=== PATIENT | female | born 1985 | race Caucasian/White ===

== ENCOUNTER 2017-03-10 09:44 | Emergency (ER) | payer SELFPAY ==
[~2017-03-10 09:44] MED LIST: CEPH-264 PO; HYDR-971 PO; METR500T PO
[2017-03-10 12:22] VITALS: BP 108/70
--- NOTE | 2017-03-10 12:36 | PHYS DOC ---
Past Medical History Past Medical History: Asthma, Depression, Other Additional Past Medical Histor: PAST SUICIDE ATTEMPTS Past Surgical History: No Surgical History, Other Additional Past Surgical Histo: [place] teeth Alcohol Use: Occasionally Drug Use: None Adult General Chief Complaint Chief Complaint: SORE THROAT HPI HPI Patient is a 31 year old female with history of asthma who presents today with right ear pain and sore throat that began yesterday. Patient denies any fever Review of Systems Review of Systems Constitutional: See history of present illness Eyes: Denies change in visual acuity, redness, or eye pain [] HENT: Right ear pain and sore throat [] Respiratory: Denies cough or shortness of breath [] Cardiovascular: No additional information not addressed in HPI [] GI: Denies abdominal pain, nausea, vomiting, bloody stools or diarrhea [] : Denies dysuria or hematuria [] Musculoskeletal: Denies back pain or joint pain [] Integument: Denies rash or skin lesions [] Neurologic: Denies headache, focal weakness or sensory changes [] Endocrine: Denies polyuria or polydipsia [] Allergies Allergies Allergies Coded Allergies Type Severity Reaction Last Updated Verified No Known Drug Allergies 05/25/15 No Physical Exam Physical Exam Constitutional: Well developed, well nourished, no acute distress, non-toxic appearance. [] HENT: Normocephalic, atraumatic, bilateral external ears normal, oropharynx moist, no oral exudates, nose normal. [] Right TM is mildly injected, posterior pharynx with mild erythema. Eyes: PERRLA, EOMI, conjunctiva normal, no discharge. [] Neck: Normal range of motion, no tenderness, supple, no stridor. [] Cardiovascular:Heart rate regular rhythm, no murmur [] Lungs & Thorax: Bilateral breath sounds clear to auscultation [] Abdomen: Bowel sounds normal, soft, no tenderness, no masses, no pulsatile masses. [] Skin: Warm, dry, no erythema, no rash. [] Back: No tenderness, no CVA tenderness. [] Extremities: No tenderness, no cyanosis, no clubbing, ROM intact, no edema. [] Neurologic: Alert and oriented X 3, normal motor function, normal sensory function, no focal deficits noted. [] Psychologic: Affect normal, judgement normal, mood normal. [] Current Patient Data Vital Signs Vital Signs Date Time Temp Pulse Resp B/P Pulse Ox O2 Delivery O2 Flow Rate FiO2 03/10/17 12:22 98.1 68 18 99 Room Air 98.1 EKG EKG [] Radiology/Procedures Radiology/Procedures [] Course & Med Decision Making Course & Med Decision Making Pertinent Labs and Imaging studies reviewed. (See chart for details) Patient has right otitis media and pharyngitis. Discharged with amoxicillin. Saltwater gargles recommended. Tylenol Motrin for pain or fever. Follow-up with primary care doctor in 1-2 weeks. Dragon Disclaimer Dragon Disclaimer This electronic medical record was generated, in whole or in part, using a voice recognition dictation system. Departure Departure Impression: Primary Impression: Viral pharyngitis Additional Impression: Otitis media Disposition: 01 HOME, SELF-CARE Condition: STABLE Referrals: NO PCP (PCP) Follow-up with your doctor in one week Patient Instructions: Otitis Media, Adult, Viral and Bacterial Pharyngitis Additional Instructions: You have an ear infection as well as sore throat. Please complete your antibiotics. Take Tylenol/ Motrin for pain or fever. Use saltwater gargles as needed for sore throat. Come back to the ED at any point symptoms worsen. Scripts Amoxicillin 875 Mg Tablet1 Tab PO BID #20 TAB Prov:FLOYD TRISTAN APRN 03/10/17 Problem Qualifiers Additional Impression: Otitis media Otitis media type: other nonsuppurative Laterality: right Chronicity: acute Recurrence: not specified as recurrent Qualified Code: H65.191 - Other acute nonsuppurative otitis media, right ear FLOYD TRISTAN APRN Mar 10, 2017 12:36
[2017-03-10] MEDS ORDERED: AMOX875T PO (12:43)
== END 2017-03-10 13:23 | disposition home or self-care (01) ==
LOC: ER 09:44
DX: H65.191 Other acute nonsuppurative otitis media, right ear (principal); J02.8 Acute pharyngitis due to other specified organisms; B34.9 Viral infection, unspecified; F32.9 Major depressive disorder, single episode, unspecified; J45.909 Unspecified asthma, uncomplicated
CPT/HCPCS: 99283

== ENCOUNTER 2018-02-21 11:32 | Emergency (ER) | payer OTHER ==
[2018-02-21] MEDS: LIDOCAINE WITH 8.4% SOD BICARB 3 ML DISP.SYRIN. INJ (13:37)
== END 2018-02-21 13:40 | disposition home or self-care (01) ==
LOC: ER 11:32
DX: S61.210A Laceration without foreign body of right index finger without damage to nail, initial encounter (principal); J45.909 Unspecified asthma, uncomplicated; Y28.8XXA Contact with other sharp object, undetermined intent, initial encounter; Y93.89 Activity, other specified; Y99.8 Other external cause status; Y92.89 Other specified places as the place of occurrence of the external cause
CPT/HCPCS: 12001; 99283-25

== ENCOUNTER 2018-04-01 11:00 | Emergency (ER) | payer OTHER ==
[2018-04-01 11:38] LABS: URINE HCG POC HCG NEGATIVE (Negative)
== END 2018-04-01 12:20 | disposition home or self-care (01) ==
LOC: ER 12:20
DX: Z20.7 Contact with and (suspected) exposure to pediculosis, acariasis and other infestations (principal); J45.909 Unspecified asthma, uncomplicated
CPT/HCPCS: 81025; 99282